=== PATIENT | female | born 1930 | race Caucasian/White ===

== ENCOUNTER → 2017-07-18 | Outpatient (CLI) | payer OTHER | LOC: FIMAGING 12:30 | PROVIDERS: ATTEND Internal Medicine Nephrology | DX: N18.3 Chronic kidney disease, stage 3 (moderate) (principal); N26.1 Atrophy of kidney (terminal) ==

== ENCOUNTER → 2019-01-21 | Outpatient (CLI) | payer OTHER | LOC: FIMAGING 14:37 | PROVIDERS: ATTEND Physician Assistant Medical | DX: J98.09 Other diseases of bronchus, not elsewhere classified (principal); I51.7 Cardiomegaly ==

== ENCOUNTER 2019-03-17 11:29 | Emergency (ER) | payer OTHER ==
[2019-03-17] MEDS ORDERED: NS 1,000 ML IV ONE ×2 (12:02→13:06)
--- NOTE | 2019-03-17 12:02 | EDPHY ---
H & P Stated Complaint: sent from primary care; n/d concerned about dehydration Time Seen by Provider: 03/17/19 11:56 HPI/ROS: CHIEF COMPLAINT: Dehydration HISTORY OF PRESENT ILLNESS: The patient is an 88-year-old female who has been dealing with mild diarrhea for the last 6 days. No fever. No nausea. She did vomit once after drinking a large amount of Gatorade. Her family was concerned because she does not hydrate well at baseline and she has some mild renal insufficiency at baseline. They were seen by the primary care doctor last week who encouraged oral hydration. They were seen again today and he recommended they come here for IV hydration and lab work. He she denies abdominal pain or tenderness. She has a history of partial gastrectomy as well as hysterectomy. She denies abdominal distention. She denies having any urinary symptoms. Severity: Moderate Modifying factors: None REVIEW OF SYSTEMS: Constitutional: denies: chills, fever, recent illness, recent injury EENTM: denies: blurred vision, double vision, nose congestion Respiratory: denies: cough, shortness of breath Cardiac: denies: chest pain, irregular heart rate, lightheadedness, palpitations Gastrointestinal/Abdominal: See HPI Genitourinary: denies: dysuria, frequency, hematuria, pain Musculoskeletal: denies: joint pain, muscle pain Skin: denies: lesions, rash, jaundice, bruising Neurological: denies: headache, numbness, paresthesia, tingling, dizziness, weakness Hematologic/Lymphatic: denies: blood clots, easy bleeding, easy bruising Immunologic/allergic: denies: HIV/AIDS, transplant 10 systems reviewed and negative except as noted EXAM: GENERAL: Well-appearing, well-nourished and in no acute distress. HEAD: Atraumatic, normocephalic. EYES: Pupils equal round and reactive to light, extraocular movements intact, sclera anicteric, conjunctiva are normal. ENT: TMs normal, nares patent, oropharynx clear without exudates. Moist mucous membranes. NECK: Normal range of motion, supple without lymphadenopathy or JVD. LUNGS: Breath sounds clear to auscultation bilaterally and equal. No wheezes rales or rhonchi. HEART: Regular rate and rhythm without murmurs, rubs or gallops. ABDOMEN: Nontender no bloating. No guarding no rebound BACK: No CVA tenderness, no spinal tenderness, step-offs or deformities EXTREMITIES: Normal range of motion, no pitting or edema. No clubbing or cyanosis. NEUROLOGICAL: Cranial nerves II through XII grossly intact. Normal speech, normal gait. 5/5 strength, normal movement in all extremities, normal sensation , normal reflexes PSYCH: Normal mood, normal affect. SKIN: Warm, dry, normal turgor, no visible rashes or lesions. Source: Patient Exam Limitations: No limitations - Personal History Current Tetanus/Diphtheria Vaccine: No Current Tetanus Diphtheria and Acellular Pertussis (TDAP): No - Medical/Surgical History Hx Asthma: No Hx Chronic Respiratory Disease: No Hx Diabetes: No Hx Cardiac Disease: No Hx Renal Disease: No Hx Cirrhosis: No Hx Alcoholism: No Hx HIV/AIDS: No Hx Splenectomy or Spleen Trauma: No Other PMH: Partial gastrectomy, hysterectomy, oophorectomy - Social History Smoking Status: Former smoker Alcohol Use: None Constitutional: Initial Vital Signs Temperature (C) 36.5 C 03/17/19 11:35 Heart Rate 55 L 03/17/19 11:35 Respiratory Rate 13 03/17/19 11:35 Blood Pressure 124/60 H 03/17/19 11:35 O2 Sat (%) 98 03/17/19 11:35 O2 Delivery Mode Room Air Allergies/Adverse Reactions: No Known Allergies Allergy (Unverified 03/17/19 11:33) Medical Decision Making ED Course/Re-evaluation: 1:00 p.m. The patient is feeling better. She has not had a bowel movement. She has received a L of fluid. Blood work is reassuring. Her abdominal exam remains benign. We will continue to hydrate and have encouraged her to give us a urine and stool sample. 2:00 p.m. the patient is feeling much better. She has been able to urinate. She has not had a bowel movement and does not feel the need. If she continues having diarrhea at home they may being back a sample. She is tolerating p. O.. She and her daughter eager to go home. Discussed indications for returning. Abdominal exam remains benign. Declines nausea medication. Differential Diagnosis: Partial list of the Differential diagnosis considered include but were not limited to; dehydration, electrolyte abnormality, gastroenteritis, and although unlikely based on the history and physical exam, I also considered urinary tract infection, C difficile, ulcerative colitis, volvulus, ischemia. I discussed these differential diagnoses and the plan with the patient as well as the usual and expected course. The patient understands that the diagnosis is provisional and that in medicine we are not always correct and that further workup is often warranted. Usual and customary warnings were given. All of the patient's questions were answered. The patient was instructed to return to the emergency department should the symptoms at all worsen or return, otherwise to followup with the physician as we discussed. - Data Points Laboratory Results: Laboratory Results 03/17/19 12:18 03/17/19 12:18 Medications Given: Discontinued Medications Sodium Chloride (Ns) 1,000 mls @ 0 mls/hr IV EDNOW ONE; Wide Open PRN Reason: Protocol Stop: 03/17/19 12:03 Last Admin: 03/17/19 12:33 Dose: 1,000 mls Sodium Chloride (Ns) 1,000 mls @ 0 mls/hr IV EDNOW ONE; Wide Open PRN Reason: Protocol Stop: 03/17/19 13:07 Last Admin: 03/17/19 13:07 Dose: 1,000 mls Departure - Departure Disposition: Home, Routine, Self-Care Clinical Impression: Dehydration Diarrhea Qualifiers: Diarrhea type: unspecified type Qualified Code(s): R19.7 - Diarrhea, unspecified Condition: Fair Instructions: Dehydration (ED), Acute Diarrhea (ED) Referrals: Ranjan Jerry MD [Primary Care Provider] - 2-3 days, if not improved
[2019-03-17 12:30] LABS: PLATELET COUNT 172 10^3/uL (150-400)
[2019-03-17 14:26] VITALS: BP 165/92
== END 2019-03-17 14:24 | disposition home or self-care (01) ==
DX: E86.0 Dehydration (principal); R19.7 Diarrhea, unspecified